=== PATIENT | female | born 1955 | race Caucasian/White ===

== ENCOUNTER 2018-07-08 08:20 | Emergency (ER) | payer OTHER ==
[~2018-07-08] VITALS: Ht 165.1 cm; Wt 48.1 kg
[2018-07-08] MEDS ORDERED: TDAP [DIPH/PERTUSSIS/TET] 0.5 ML VIAL IM ONE ×2 (08:30)
[2018-07-08] MEDS ORDERED: LIDOCAINE MPF 1%-EPI 1:200,000 30 ML VIAL IJ ONE (08:30)
--- NOTE | 2018-07-08 08:30 | NUR ---
PT AMBULATORY TO ER BED 10 C/O HEADACHE S/P GLF AFTER SHE GOT SWEPT BY HER OWN DOG AND FELL. PT PRESENTS W/ R EY EYEBROW LACERATION AND R ELBOW ABRASIONS. NOT UTD TO TETANUS SHOT. CALLIE JOHNSON. DR NICOLE AT BEDSIDE FOR EVAL.
--- NOTE | 2018-07-08 08:38 | NUR ---
PT TO RADIOLOGY FOR HEAD CT SCAN [facility].
[2018-07-08] MEDS ORDERED: LIDOCAINE 1% INJ 50 ML MDV IJ ONE (09:04)
--- NOTE | 2018-07-08 09:34 | NUR ---
LAC REPAIR DONE. 3 SUTURES NOTED. WOUND CARE PROVIDED. OK FOR D/C.
--- NOTE | 2018-07-08 09:36 | NUR ---
PT. VERBALIZED UNDERSTANDING OF AFTERCARE INSTRUCTIONS.Patient discharged to home in stable condition. Written and verbal after care instructions given. Patient verbalizes understanding of instruction.
[2018-07-08 09:37] VITALS: BP 135/77
== END 2018-07-08 09:38 | disposition home or self-care (01) ==
LOC: ER 08:24
DX: S01.111A Laceration without foreign body of right eyelid and periocular area, initial encounter (principal); S50.01XA Contusion of right elbow, initial encounter; I10 Essential (primary) hypertension; Z88.6 Allergy status to analgesic agent; W01.0XXA Fall on same level from slipping, tripping and stumbling without subsequent striking against object, initial encounter; Y93.K1 Activity, walking an animal; Y92.89 Other specified places as the place of occurrence of the external cause; Y99.8 Other external cause status
CPT/HCPCS: 12013; 70450; 90471; 90715; 99284; A6402; A6403; J3490 ×2

== ENCOUNTER 2018-07-15 08:46 | Emergency (ER) | payer OTHER ==
[~2018-07-15] VITALS: Ht 165.1 cm; Wt 47.2 kg
[2018-07-15 08:51] VITALS: BP 127/73
[2018-07-15] MEDS ORDERED: KETOROLAC TROMETHAMINE INJ 30 MG/ML VIAL IM ONE (09:30)
--- NOTE | 2018-07-15 09:40 | NUR ---
Patient discharged to home in stable condition. Written and verbal after care instructions given. Patient verbalizes understanding of instruction.
== END 2018-07-15 09:39 | disposition home or self-care (01) ==
LOC: ER 08:46
DX: S01.111D Laceration without foreign body of right eyelid and periocular area, subsequent encounter (principal); I10 Essential (primary) hypertension; Z88.6 Allergy status to analgesic agent; W19.XXXD Unspecified fall, subsequent encounter
CPT/HCPCS: Z7502

== ENCOUNTER 2021-10-03 10:39 | Emergency (ER) | payer OTHER ==
[~2021-10-03] VITALS: Ht 162.6 cm; Wt 47.2 kg
--- NOTE | 2021-10-03 10:45 | NUR ---
RECEIVED PT 65 YRS FEMALE came from home accompany by amish lauceration in lower lips and skin abbration on lt arm s/p fall down and trip at 1030 this morning
--- NOTE | 2021-10-03 11:00 | NUR ---
WATING TO BE SEEN BY provider
--- NOTE | 2021-10-03 13:35 | NUR ---
suture donr on rt finger by EFFIE STUDED AT BED SIDE AND DRESSING APPLED ON BOTH ARM
[2021-10-03 13:45] VITALS: BP 166/91
--- NOTE | 2021-10-03 13:45 | NUR ---
DR. CHOU AT BED SIDE SPOOK WITH PT PLAN OF CARE FALLOW UP WITH PLASTIC SURGEN
[2021-10-03] MEDS ORDERED: LIDOCAINE 1% INJ 50 ML MDV IJ ONE (14:00)
--- NOTE | 2021-10-03 14:17 | NUR ---
d/c instraction given to pt fully and verblized understood
== END 2021-10-03 15:10 | disposition home or self-care (01) ==
LOC: ER 12:44
DX: S61.221A Laceration with foreign body of left index finger without damage to nail, initial encounter (principal); S01.511A Laceration without foreign body of lip, initial encounter; I10 Essential (primary) hypertension; Z88.6 Allergy status to analgesic agent; W01.0XXA Fall on same level from slipping, tripping and stumbling without subsequent striking against object, initial encounter; Y93.01 Activity, walking, marching and hiking; Y92.89 Other specified places as the place of occurrence of the external cause; Y99.8 Other external cause status
CPT/HCPCS: 73140-TC